=== PATIENT | female | born 1960 | race Caucasian/White ===

== ENCOUNTER → 2016-05-31 | Outpatient (CLI) | payer OTHER ==
[~2016-05-31] MED LIST: DAYPRO600 M1 PO; MOTRIN800 MG PO; PERCOCET 325 MG1 TA2 PO; ROBAXIN750 MG PO; VICODIN 500 MG-1 TAB PO
== END | disposition home or self-care (01) ==
LOC: US 09:50
DX: D25.9 Leiomyoma of uterus, unspecified (principal); R93.8 Abnormal findings on diagnostic imaging of other specified body structures

== ENCOUNTER 2017-06-18 04:18 | Emergency (ER) | payer MEDICAID ==
[~2017-06-18] VITALS: Ht 167.6 cm; Wt 79.4 kg
[2017-06-18 05:16] LABS: BILIRUBIN 3+ (NEGATIVE); BLOOD 3+ (NEGATIVE); CLARITY TURBID (CLEAR); GLUCOSE TRACE (NEGATIVE); KETONE 1+ (NEGATIVE); LEUKO ESTERASE 3+ (NEGATIVE); NITRITE POSITIVE (NEGATIVE); PH 6.5 (5.0-9.0)
[2017-06-18 05:19] LABS: COLOR RED (YELLOW)
[2017-06-18 05:22] LABS: BACTERIA 4+; RBC TNTC rbc/hpf (0-2)
[2017-06-18] MEDS ORDERED: PYRIDIUM100 MG PO (05:25)
[2017-06-18] MEDS ORDERED: SEPTDS PO (05:25)
== END 2017-06-18 05:37 | disposition home or self-care (01) ==
LOC: ED 04:18
PROVIDERS: Student in an Organized Health Care Education/Training Program
DX: N39.0 Urinary tract infection, site not specified (principal); R31.9 Hematuria, unspecified; F17.200 Nicotine dependence, unspecified, uncomplicated; Z79.899 Other long term (current) drug therapy

== ENCOUNTER 2017-11-28 11:57 | Emergency (ER) | payer OTHER ==
[~2017-11-28] VITALS: Ht 167.6 cm; Wt 79.4 kg
--- NOTE | ~2017-11-28 | EKG ---
[place], [place] ELECTROCARDIOGRAM REPORT NAME: ZAHIDA LIRA UNIT #: [id number] ROOM: DOCTOR: PAZ DRAFT REPORT BIRTHDATE: [birth year] [facility] Test Date: 2017-11-28 Test Time: 12:50:35 Pat Name: ZAHIDA LIRA Department: Room: Gender: F Customer Acquisition Manager: : [id number] Requested By: WESLEY GAINES Order Number: [id number] Reading MD: John Ortiz MD Measurements Intervals [place] Rate: 58 P: 55 TN: 178 QRS: 51 QRSD: 102 T: 68 QT: 418 QTc: 411 Interpretive Statements Sinus rhythm Minimal ST elevation, anterior leads Low voltage T in V5-6 Electronically Signed On 12-03-2017 14:20:35 PDT by John Ortiz MD CM:EKGRPT:ELECTROCARDIOGRAM REPORT [id number] WESLEY MULLEN DRAFT REPORT WESLEY GAINES MD
[~2017-11-28 11:57] MED LIST changes: +PYRIDIUM100 MG PO; +SEPTDS PO
[2017-11-28] MEDS ORDERED: LIPITOR40 MG PO (12:06)
[2017-11-28] MEDS ORDERED: CITALOPRAM40 MG PO (12:06)
[2017-11-28 12:46] LABS: BILIRUBIN NEGATIVE (NEGATIVE); BLOOD NEGATIVE (NEGATIVE); CLARITY SL CLOUDY (CLEAR); COLOR YELLOW (YELLOW); GLUCOSE NEGATIVE (NEGATIVE); KETONE NEGATIVE (NEGATIVE); LEUKO ESTERASE NEGATIVE (NEGATIVE); NITRITE NEGATIVE (NEGATIVE); SPECIFIC GRAVITY <= 1.005 (1.005-1.030); UROBILINOGEN 0.2 E.U./dl (0.2-1.0)
[2017-11-28 12:55] LABS: BASO # 0.1 10*3/uL (0.0-0.1); BASO % 0.5 % (0.0-1.0); EOS # 0.6 10*3/uL (0.0-0.4); EOS % 5.7 % (1.0-4.0); HEMATOCRIT 41.6 % (37.0-47.0); HEMOGLOBIN 13.5 g/dl (12.0-16.0); LYMPH # 2.1 10*3/uL (1.3-4.4); LYMPH % 19.5 % (27.0-41.0); MEAN CELL VOLUME 89.1 fl (81.0-99.0); MEAN CORPUSCULAR HGB 28.9 pg (27.0-31.0); MEAN CORPUSCULAR HGB CONC 32.5 g/dl (33.0-37.0); MEAN PLATELET VOLUME 10.1 fl (9.6-12.3); MONO # 0.6 10*3/uL (0.1-1.0); MONO % 5.4 % (3.0-9.0); NEUT # 7.5 10*3/uL (2.3-7.9); NEUT % 68.5 % (47.0-73.0); PLATELET COUNT AUTOMATED 257 10*3/uL (130-400); RED BLOOD COUNT 4.67 10*6/uL (4.10-5.10); RED CELL DISTRI WIDTH 13.6 % (0-14.5); WHITE BLOOD COUNT 10.9 10*3/uL (4.8-10.8)
[2017-11-28 13:03] LABS: ACT PARTIAL THROMBO TIME 26.3 SECONDS (20.8-31.5)
[2017-11-28 13:06] LABS: BACTERIA TRACE; WBC 0-2 wbc/hpf (0-5)
[2017-11-28 13:10] LABS: ALKALINE PHOSPHATASE 108 U/L (45-117); BUN 11 mg/dl (7-24); CHLORIDE 106 mmol/L (98-107); CREATININE 0.86 mg/dL (0.55-1.02); POTASSIUM 3.9 mmol/L (3.5-5.1); SGOT/AST 16 IU/L (3-35); SGPT/ALT 29 U/L (12-78); SODIUM 141 mmol/L (136-145); TOTAL PROTEIN 7.3 gm/dL (6.4-8.2)
[2017-11-28 13:18] LABS: TROPONIN I < 0.015 ng/ml (<0.045)
== END 2017-11-28 14:38 | disposition home or self-care (01) ==
LOC: ED 11:57
PROVIDERS: Emergency Medicine
DX: R07.89 Other chest pain (principal); R09.1 Pleurisy; R05 Cough; F17.200 Nicotine dependence, unspecified, uncomplicated; Z79.899 Other long term (current) drug therapy

== ENCOUNTER → 2019-04-28 | Outpatient (CLI) | payer OTHER ==
[~2019-04-28] MED LIST changes: +CITALOPRAM40 MG PO; +LIPITOR40 MG PO
[2019-04-28 13:51] LABS: BILIRUBIN NEGATIVE (NEGATIVE); BLOOD NEGATIVE (NEGATIVE); CLARITY CLEAR (CLEAR); COLOR YELLOW (YELLOW); GLUCOSE NEGATIVE (NEGATIVE); KETONE NEGATIVE (NEGATIVE); LEUKO ESTERASE NEGATIVE (NEGATIVE); NITRITE NEGATIVE (NEGATIVE); PH 6.5 (5.0-9.0); SPECIFIC GRAVITY <= 1.005 (1.005-1.030); UROBILINOGEN 0.2 E.U./dl (0.2-1.0)
[2019-04-28 14:20] LABS: BASO # 0.1 10*3/uL (0.0-0.1); BASO % 0.7 % (0.0-1.0); EOS # 0.5 10*3/uL (0.0-0.4); HEMATOCRIT 40.2 % (37.0-47.0); HEMOGLOBIN 13.1 g/dl (12.0-16.0); LYMPH # 3.2 10*3/uL (1.3-4.4); MEAN CELL VOLUME 89.9 fl (81.0-99.0); MEAN CORPUSCULAR HGB 29.3 pg (27.0-31.0); MEAN CORPUSCULAR HGB CONC 32.6 g/dl (33.0-37.0); MEAN PLATELET VOLUME 10.1 fl (9.6-12.3); MONO # 0.8 10*3/uL (0.1-1.0); MONO % 7.5 % (3.0-9.0); NEUT # 5.7 10*3/uL (2.3-7.9); NEUT % 55.5 % (47.0-73.0); PLATELET COUNT AUTOMATED 274 10*3/uL (130-400); RED BLOOD COUNT 4.47 10*6/uL (4.10-5.10); RED CELL DISTRI WIDTH 13.6 % (0-14.5); WHITE BLOOD COUNT 10.3 10*3/uL (4.8-10.8)
[2019-04-28 14:21] LABS: ALBUMIN 4.1 gm/dl (3.1-4.5); ALKALINE PHOSPHATASE 103 U/L (45-117); BUN 13 mg/dl (7-24); CHLORIDE 104 mmol/L (98-107); CREATININE 0.74 mg/dL (0.55-1.02); POTASSIUM 3.9 mmol/L (3.5-5.1); SGOT/AST 18 IU/L (3-35); SGPT/ALT 36 U/L (12-78); SODIUM 139 mmol/L (136-145); TOTAL PROTEIN 7.4 gm/dL (6.4-8.2)
[2019-04-28 14:36] LABS: WBC 0-2 wbc/hpf (0-5)
[2019-04-28 14:37] LABS: BACTERIA 1+; EPITHELIAL CELLS 16-20
== END | disposition home or self-care (01) ==
LOC: US 03-26 17:00 → LAB 12:54 → US 13:00
PROVIDERS: Nurse Practitioner Family
DX: N39.0 Urinary tract infection, site not specified (principal); N28.89 Other specified disorders of kidney and ureter; E78.00 Pure hypercholesterolemia, unspecified